=== PATIENT | female | born 1955 | race Two or more races ===

== ENCOUNTER 2020-11-19 09:31 | Emergency (ER) | payer MEDICARE, OTHER ==
[~2020-11-19] VITALS: Ht 160 cm; Wt 75.7 kg
[2020-11-19 10:00] VITALS: BP 162/88
== END 2020-11-19 12:55 | disposition home or self-care (01) ==
LOC: ER 09:31
DX: S70.361A Insect bite (nonvenomous), right thigh, initial encounter (principal); Z90.710 Acquired absence of both cervix and uterus; W57.XXXA Bitten or stung by nonvenomous insect and other nonvenomous arthropods, initial encounter; Y93.89 Activity, other specified; Y92.89 Other specified places as the place of occurrence of the external cause; Y99.8 Other external cause status

== ENCOUNTER 2024-12-06 16:53 | Inpatient (IN) | payer OTHER ==
[~2024-12-06] VITALS: Ht 160 cm; Wt 71.9 kg
[2024-12-06] MEDS: SODIUM CHLORIDE 0.9% 1,000 ML IV ONE (17:27)
[2024-12-06] MEDS: ONDANSETRON HCL 4 MG/2 ML VIAL IV ONE (17:27)
[2024-12-06] MEDS: PANTOPRAZOLE 40 MG/10 ML VIAL INJ IV ONE (17:27)
[2024-12-06] MEDS: MORPHINE SULFATE 4 MG/ML SYR/VIAL IV ONE (17:28)
[2024-12-06 17:30] VITALS: PULSE 93; RESP 18; O2SAT 98
[2024-12-06 17:48] LABS: Basophils # (auto) 0 10 ^3/uL (0-0.2); Basophils % (auto) 0.5 % (0.0-2.0); Eosinophils # (auto) 0 10 ^3/uL (0-0.8); Eosinophils % (auto) 0.5 % (0.0-7.0); Hematocrit 44.2 % (36.0-46.0); Hemoglobin 15.1 g/dL (12.2-16.2); Lymphocytes # (auto) 2.1 10 ^3/uL (0.4-5.4); Lymphocytes % (auto) 22.6 % (10.0-50.0); Mean Corpuscular Hemoglobin 30.7 pg (28.0-32.0); Mean Corpuscular Hgb Conc. 34.1 g/dL (32.0-36.0); Mean Corpuscular Volume 89.9 fL (80.0-100.0); Monocytes # (auto) 0.6 10 ^3/uL (0-1.3); Monocytes % (auto) 6.4 % (0.0-12.0); Neutrophils # (auto) 6.4 10 ^3/uL (1.6-8.6); Nucleated Red Blood Cells % 0.1 %; Platelet Count (auto) 303 10^3/uL (140-450); Red Blood Cells 4.92 10^6/uL (4.0-5.20); Red Cell Distribution Width 13.6 % (11.8-14.3); White Blood Cell 9.1 10^3/uL (4.4-10.8)
[2024-12-06 18:03] LABS: INR 0.97 (0.9-1.15); Partial Thromboplastin Time 27.3 SEC (24.5-34.5); Prothrombin Time 10.3 sec (9.3-11.8)
[2024-12-06 18:05] LABS: Alanine Aminotransferase 23 U/L (7-40); Albumin 4.7 g/dL (3.2-4.8); Alkaline Phosphatase 170 U/L (46-116); Anion Gap 10 (5-15); Aspartate Aminotransferase 28 U/L (13-40); BUN/Creatinine Ratio 20.9 (10.0-20.0); Bilirubin, Total 1.4 mg/dL (0.2-1.0); Blood Urea Nitrogen 18 mg/dL (9-23); Calcium 10.5 mg/dL (8.7-10.4); Carbon Dioxide 25 mmol/L (20-31); Chloride 109 mmol/L (98-107); Glucose 96 mg/dL (74-106); Potassium 3.8 mmol/L (3.5-5.1); Sodium 144 mmol/L (136-145); Total Protein 7.4 g/dL (5.7-8.2)
--- NOTE | 2024-12-06 18:33 | DVH ---
EXAM: CT Abdomen and Pelvis Without Intravenous Contrast CLINICAL INDICATION: abd pain n/v/d rectal bleed h/o ulcerative colitis TECHNIQUE: Axial computed tomography images of the abdomen and pelvis without intravenous contrast. This CT exam was performed using one or more of the following dose reduction techniques: automated exposure control, adjustment of the mA and/or kV according to patient size, and/or use of iterative r econstruction technique. CONTRAST: RADIATION DOSE: CTDIvol = 11.31 mGy, DLP = 592.65 mGy-cm COMPARISON: None FINDINGS: LUNG BASES: Unremarkable. No mass. No consolidation. ABDOMEN: LIVER: Unremarkable. GALLBLADDER AND BILE DUCTS: Unremarkable. No calcified stones. No ductal dilation. PANCREAS: Unremarkable. No ductal dilation. SPLEEN: Unremarkable. No splenomegaly. ADRENALS: Unremarkable. No mass. KIDNEYS AND URETERS: Bilateral simple renal cysts, largest measuring up to 3.2 cm. No obstructing stones. STOMACH AND BOWEL: Fecal retention in the colon consistent with constipation. Colonic diverticulos is without acute diverticulitis. No obstruction. PELVIS: APPENDIX: No findings to suggest acute appendicitis. BLADDER: Unremarkable. No stones. REPRODUCTIVE: Unremarkable as visualized. ABDOMEN and PELVIS: INTRAPERITONEAL SPACE: Unremarkable. No free air. No significant fluid collection. BONES/JOINTS: Severe endplate degenerative changes and disc disease of L4-5. No acute fracture. N o dislocation. SOFT TISSUES: Unremarkable. VASCULATURE: Unremarkable. No abdominal aortic aneurysm. LYMPH NODES: Unremarkable. No enlarged lymph nodes. OTHER FINDINGS: . . . IMPRESSION: 1. Fecal retention in the colon consistent with constipation. 2. Severe endplate degenerative changes and disc disease of L4-5. 3. Colonic diverticulosis without acute diverticulitis. 4. Bilateral simple renal cysts, largest measuring up to 3.2 cm.
--- NOTE | 2024-12-06 19:32 | ED.PDOC ---
GI ASSESSMENT HPI Comments 69 y.o female with PMHx of ulcerative colitis and HTN, presents to the ED for a chief complaint of rectal bleeding associated with nausea and vomiting that started last night. Patient reports bleeding progressively worsened with the presence of blood clots and moderate to heavy dark red blood. Patient reports similar issue in 2019 when she was diagnosed with ulcerative colitis due to overuse of NSAIDS but since has not followed up with a director of outside sales. Patient denies any fever, chills, dysuria. Chief Complaint: GI Bleed Time Seen by MD: 19:17 Primary Care Provider: Valeria FAITH Reviewed Notes: Nurses Notes, Medications, Allergies Allergies: Coded Allergies: NO KNOWN ALLERGIES (Unverified , 11/19/20) Information Source: Patient Mode of Arrival: Ambulatory Timing: Hours Duration: Since onset Quality: Sharp Vomitus: Hard Stool: Loose Severity: Moderate Recent: None Recent Hx of: None Pain Location: Suprapubic Modifying Factors: Nothing Associated sign and symptoms: Nausea, Vomiting, Diarrhea, Abdominal Pain Past Medical History PAST MEDICAL HISTORY: High Lipids, HTN Past Medical History (Other): Ulcerative colitis Surgical History: Hysterectomy LAVATORY ATTENDANT History: No Pertinent LAVATORY ATTENDANT History Family History Family History: Reviewed,noncontributory to illness Social History Smoker: Non-Smoker Alcohol: Denies ETOH Use Drugs: Marijuana Lives In: Home Constitutional: denies: chills, diaphoresis, fatigue, fever, malaise, sweats, weakness, others EENTM: denies: blurred vision, double vision, ear bleeding, ear discharge, ear drainage, ear pain, ear ringing, eye pain, eye redness, hearing loss, mouth pain, mouth swelling, nasal discharge, nose bleeding, nose congestion, nose pain, photophobia, tearing, throat pain, throat swelling, voice changes, others Respiratory: denies: cough, hemoptysis, orthopnea, SOB at rest, shortness of breath, SOB with excertion, stridor, wheezing, others Cardiovascular: denies: chest pain, dizzy spells, diaphoresis, Dyspnea on exertion, edema, irregular heart beat, left arm pain, lightheadedness, palpitations, PND, syncope, others Gastrointestinal: reports: abdominal pain, diarrhea, nausea, rectal bleeding, vomiting; denies: abdomen distended, blood streaked bowels, constipated, dysphagia, difficulty swallowing, hematemesis, melena, poor appetite, poor fluid intake, rectal pain, others Genitourinary: denies: abnormal vagina bleeding, burning, dyspareunia, dysuria, flank pain, frequency, hematuria, incontinence, pain, , vagina discharge, urgency, others Neurological: denies: dizziness, fainting, headache, left sided numbness, left sided weakness, numbness, paresthesia, pre-existing deficit, right sided numbness, right sided weakness, seizure, speech problems, tingling, tremors, weakness, others Musculoskeletal: denies: back pain, gout, joint pain, joint swelling, muscle pain, muscle stiffness, neck pain, others Integumetry: denies: bruises, change in color, change in hair/nails, dryness, laceration, lesions, lumps, rash, wounds, others Allergic/Immunocompromised: denies: Difficulty Healing, Frequent Infections, Hives, Itching, others Hematologic/Lymphatic: denies: anemia, blood clots, easy bleeding, easy bruising, swollen glands, others Endocrine: denies: excessive hunger, excessive sweating, excessive thirst, excessive urination, flushing, intolerance to cold, intolerance to heat, unexplained weight gain, unexplained weight loss, others Psychiatric: denies: anxiety, bipolar disorder, depression, hopeless, panic disorder, schizophrenia, sleepless, suicidal, others All Other Systems: Reviewed and Negative Physical Exam General Appearance: No Apparent Distress HEENT: Other (Pupils and face symmetric. Moist mucous membranes.) Neck: Full Range of Motion, Normal Inspection Respiratory: Lungs Clear, No Accessory Muscle Use, No Respiratory Distress, Normal Breath Sounds Cardiovascular: No Edema, No JVD, Regular Rate/Rhythm Breast Exam: Deferred Gastrointestinal: Soft, Tenderness (Generalized lower abdominal tenderness to palpation. Nontender to percussion. No rebound or guarding.) Genitalia: Deferred Pelvic: Deferred Rectal: Deferred Extremities: Normal inspection, Normal range of motion, Non-tender, No pedal edema Neurologic: Alert (Oriented x4), Normal Affect, Normal Mood, Other (Ambulatory) Cerebellar Function: NOT DONE Reflexes: NOT DONE Skin: Dry, Normal Color, Warm Lymphatic: NOT DONE Was a procedure done? Was a procedure done?: No GI differential Dx Differential Diagnosis: Diverticular disease, Gastritis/PUD, Gastroenteritis, GI hemorrhage, Inflammatory BD, Ischemic Bowel, UTI, Dehydration, Electrolyte Imbalance, Food Poisoning, Bacterial, Viral, Hypovolemia, Anemia, Esophageal Varicies, Stress Ulcer Other Differential Diagnosis Colitis, among others X-Ray, Labs, Meds, VS Vital Signs Date Time Temp Pulse Resp B/P (MAP) Pulse Ox O2 Delivery O2 Flow Rate FiO2 12/06/24 18:00 93 18 146/99 12/06/24 17:30 93 18 98 Room Air* 0 21 12/06/24 17:28 93 18 146/99 12/06/24 17:22 98.1 93 18 146/99 (115) 96 98.1 12/06/24 17:02 98.1 95 16 143/104 (117) 96 98.1 Lab Test 12/06/24 18:17 12/06/24 17:35 Range/Units Troponin I High Sensitivity 6 7 </=34 ng/L White Blood Count 9.1 4.4-10.8 10^3/uL Red Blood Count 4.92 4.0-5.20 10^6/uL Hemoglobin 15.1 12.2-16.2 g/dL Hematocrit 44.2 36.0-46.0 % Mean Corpuscular Volume 89.9 80.0-100.0 fL Mean Corpuscular Hemoglobin 30.7 28.0-32.0 pg Mean Corpuscular Hemoglobin Concent 34.1 32.0-36.0 g/dL Red Cell Distribution Width 13.6 11.8-14.3 % Platelet Count 303 140-450 10^3/uL Mean Platelet Volume 7.0 6.9-10.8 fL Neutrophils (%) (Auto) 70.0 37.0-80.0 % Lymphocytes (%) (Auto) 22.6 10.0-50.0 % Monocytes (%) (Auto) 6.4 0.0-12.0 % Eosinophils (%) (Auto) 0.5 0.0-7.0 % Basophils (%) (Auto) 0.5 0.0-2.0 % Neutrophils # (Auto) 6.4 1.6-8.6 10 ^3/uL Lymphocytes # (Auto) 2.1 0.4-5.4 10 ^3/uL Monocytes # (Auto) 0.6 0-1.3 10 ^3/uL Eosinophils # (Auto) 0 0-0.8 10 ^3/uL Basophils # (Auto) 0 0-0.2 10 ^3/uL Nucleated Red Blood Cells 0.1 % Prothrombin Time 10.3 9.3-11.8 sec Prothrombin Time INR 0.97 0.9-1.15 Activated Partial Thromboplast Time 27.3 24.5-34.5 SEC Sodium Level 144 136-145 mmol/L Potassium Level 3.8 3.5-5.1 mmol/L Chloride Level 109 H 98-107 mmol/L Carbon Dioxide Level 25 20-31 mmol/L Anion Gap 10 5-15 Blood Urea Nitrogen 18 9-23 mg/dL Creatinine 0.86 0.550-1.02 mg/dL Glomerular Filtration Rate Calc 73 >90 mL/min BUN/Creatinine Ratio 20.9 H 10.0-20.0 Serum Glucose 96 74-106 mg/dL Lactic Acid Level 1.3 0.4-2.0 mmol/L Calcium Level 10.5 H 8.7-10.4 mg/dL Total Bilirubin 1.4 H 0.2-1.0 mg/dL Aspartate Amino Transferase (AST) 28 13-40 U/L Alanine Aminotransferase (ALT) 23 7-40 U/L Alkaline Phosphatase 170 H 46-116 U/L Total Protein 7.4 5.7-8.2 g/dL Albumin 4.7 3.2-4.8 g/dL Current Medications Medications (Trade) Dose Ordered Sig/Fuentes Route Start Time Stop Time Status Last Admin Sodium Chloride 1,000 ml @ 1,000 mls/hr Q1H ONCE IV 12/06/24 17:15 12/06/24 18:14 DC 12/06/24 17:27 Morphine Sulfate 4 mg ONCE ONCE IV 12/06/24 17:15 12/06/24 17:16 DC 12/06/24 17:28 Ondansetron HCl (Zofran) 4 mg ONCE ONCE IV 12/06/24 17:15 12/06/24 17:16 DC 12/06/24 17:27 Pantoprazole Sodium (Protonix) 40 mg ONCE ONCE IV 12/06/24 17:15 12/06/24 17:16 DC 12/06/24 17:27 PROCEDURE(s): ABPL - CT AB PEL WO CON-NO ORAL OR IV REASON: abd pain n/v/d rectal bleed h/o ulcerative colitis ORDER NUMBER(s): [id number], ACCESSION NUMBER(s): [id number] EXAM: CT Abdomen and Pelvis Without Intravenous Contrast CLINICAL INDICATION: abd pain n/v/d rectal bleed h/o ulcerative colitis TECHNIQUE: Axial computed tomography images of the abdomen and pelvis without intravenous contrast. This CT exam was performed using one or more of the following dose reduction techniques: automated exposure control, adjustment of the mA and/or kV according to patient size, and/or use of iterative reconstruction technique. CONTRAST: RADIATION DOSE: CTDIvol = 11.31 mGy, DLP = 592.65 mGy-cm COMPARISON: None FINDINGS: LUNG BASES: Unremarkable. No mass. No consolidation. ABDOMEN: LIVER: Unremarkable. GALLBLADDER AND BILE DUCTS: Unremarkable. No calcified stones. No ductal dilation. PANCREAS: Unremarkable. No ductal dilation. SPLEEN: Unremarkable. No splenomegaly. ADRENALS: Unremarkable. No mass. KIDNEYS AND URETERS: Bilateral simple renal cysts, largest measuring up to 3.2 cm. No obstructing stones. STOMACH AND BOWEL: Fecal retention in the colon consistent with constipation. Colonic diverticulosis without acute diverticulitis. No obstruction. PELVIS: APPENDIX: No findings to suggest acute appendicitis. BLADDER: Unremarkable. No stones. REPRODUCTIVE: Unremarkable as visualized. ABDOMEN and PELVIS: INTRAPERITONEAL SPACE: Unremarkable. No free air. No significant fluid collection. BONES/JOINTS: Severe endplate degenerative changes and disc disease of L4-5. No acute fracture. No dislocation. SOFT TISSUES: Unremarkable. VASCULATURE: Unremarkable. No abdominal aortic aneurysm. LYMPH NODES: Unremarkable. No enlarged lymph nodes. OTHER FINDINGS: . . . IMPRESSION: 1. Fecal retention in the colon consistent with constipation. 2. Severe endplate degenerative changes and disc disease of L4-5. 3. Colonic diverticulosis without acute diverticulitis. 4. Bilateral simple renal cysts, largest measuring up to 3.2 cm. X-Ray, Labs, Meds, VS Comment 69-year-old female with a history of hypertension, dyslipidemia and ulcerative colitis presenting complaining of abdominal pain and lower GI bleeding Vitals remarkable for BP 143/104 Exam remarkable for generalized lower abdominal tenderness to palpation Rhythm strip independently interpreted by me: Sinus rhythm, rate 95, no ectopy. CT abdomen and pelvis IMPRESSION: 1. Fecal retention in the colon consistent with constipation. 2. Severe endplate degenerative changes and disc disease of L4-5. 3. Colonic diverticulosis without acute diverticulitis. 4. Bilateral simple renal cysts, largest measuring up to 3.2 cm. CBC, CMP and coag panel unremarkable Patient treated with the following in the ED: L 0.9 normal saline IV bolus, morphine 4 mg IV, Zofran 4 mg IV, Protonix 40 mg IV On re-evaluation, patient states pain has improved. Vitals were stable. Plan is to admit the patient for GI evaluation. Time of 1ST Reevaluation: 19:27 Reevaluation 1ST: Unchanged Patient Education/Counseling: Diagnosis, Treatment, Prognosis Family Education/Counseling: No Family Present Sepsis Sepsis Reasesment Focused Exam Orders: Laboratory Tests 12/06/24 17:35: Lactic Acid Level 1.3 Departure 1 Departure Time of Disposition: 21:00 Impression: Primary Impression: GI bleeding Qualified Codes: K92.2 - Gastrointestinal hemorrhage, unspecified Disposition: ADMITTED INPATIENT Admit to: Med Surg Condition: Guarded Critical Care Note Critical Care Time?: No Stability Stability form required: No I personally scribed for DWAYNE RIOS MD ([email or web address]) on 12/06/24 at 19:32. Electronically submitted by Alejandrina Brink ([facility]). DWAYNE RIOS MD Dec 06, 2024 19:32
[2024-12-07] VITALS (10 sets, daily range): BP systolic 125–177; BP diastolic 68–91; PULSE 62–75; RESP 16–18; TEMP 97.9–98.7; O2SAT 96–98
--- NOTE | 2024-12-07 00:29 | DVHHP2 ---
History of Present Illness Reason for Visit: GI bleed History of Present Illness 69-year-old female presents for evaluation of GI bleed. Patient reports a one day history of having multiple episodes of rectal bleeding. She states being diagnosed six years ago with ulcerative colitis. She reports not following up with a GI specialist since then. Past Medical History Hypertension, ulcerative colitis and dyslipidemia Past Surgical History Hysterectomy Family History Noncontributory Smoke: No ALCOHOL: none Drugs: Marijuana Review of Systems Review of Systems Review of systems are currently negative otherwise addressed in HPI. Allergies: Coded Allergies: NO KNOWN ALLERGIES (Unverified , 11/19/20) Medications Current Medications Medications Dose Ordered Sig/Fuentes Route Start Time Stop Time Status Last Admin Dose Admin Pantoprazole Sodium 40 mg DAILY IV 12/07/24 10:00 Ondansetron HCl 4 mg Q4HP PRN IV 12/06/24 20:00 Losartan Potassium 100 mg DAILY PO 12/07/24 10:00 Exam Vital Signs Vital Signs Date Time Temp Pulse Resp B/P (MAP) Pulse Ox O2 Delivery O2 Flow Rate FiO2 12/06/24 18:00 93 18 146/99 12/06/24 17:30 98 Room Air* 0 21 12/06/24 17:22 98.1 98.1 Exam Gen: 69-year-old female in no apparent distress. Skin: Warm, dry, normal color and texture, no rash. HEENT: Normocephalic atraumatic, mucous membranes moist and pink. Neck: Cervical and supraclavicular nodes normal without enlargement, trachea is midline, thyroid gland is normal without masses. Pulmonary: Clear to auscultation and percussion bilaterally. Cardiac: Regular rate and rhythm. No murmur Abdomen: Soft, nontender, nondistended, bowel sounds present all 4 quadrants, no guarding, no rigidity, no organomegaly. Extremities: No cyanosis, clubbing, no edema Neuro: Cranial nerves II through XII grossly intact, normal affect and speech, no focal motor deficits. Labs/Xrays ORDERING PHYSICIAN: DWAYNE RIOS MD PROCEDURE(s): ABPL - CT AB PEL WO CON-NO ORAL OR IV REASON: abd pain n/v/d rectal bleed h/o ulcerative colitis ORDER NUMBER(s): [id number], ACCESSION NUMBER(s): [id number] EXAM: CT Abdomen and Pelvis Without Intravenous Contrast CLINICAL INDICATION: abd pain n/v/d rectal bleed h/o ulcerative colitis TECHNIQUE: Axial computed tomography images of the abdomen and pelvis without intravenous contrast. This CT exam was performed using one or more of the following dose reduction techniques: automated exposure control, adjustment of the mA and/or kV according to patient size, and/or use of iterative reconstruction technique. CONTRAST: RADIATION DOSE: CTDIvol = 11.31 mGy, DLP = 592.65 mGy-cm COMPARISON: None FINDINGS: LUNG BASES: Unremarkable. No mass. No consolidation. ABDOMEN: LIVER: Unremarkable. GALLBLADDER AND BILE DUCTS: Unremarkable. No calcified stones. No ductal dilation. PANCREAS: Unremarkable. No ductal dilation. SPLEEN: Unremarkable. No splenomegaly. ADRENALS: Unremarkable. No mass. KIDNEYS AND URETERS: Bilateral simple renal cysts, largest measuring up to 3.2 cm. No obstructing stones. STOMACH AND BOWEL: Fecal retention in the colon consistent with constipation. Colonic diverticulosis without acute diverticulitis. No obstruction. PELVIS: APPENDIX: No findings to suggest acute appendicitis. BLADDER: Unremarkable. No stones. REPRODUCTIVE: Unremarkable as visualized. ABDOMEN and PELVIS: INTRAPERITONEAL SPACE: Unremarkable. No free air. No significant fluid collection. BONES/JOINTS: Severe endplate degenerative changes and disc disease of L4-5. No acute fracture. No dislocation. SOFT TISSUES: Unremarkable. VASCULATURE: Unremarkable. No abdominal aortic aneurysm. LYMPH NODES: Unremarkable. No enlarged lymph nodes. OTHER FINDINGS: . . . IMPRESSION: 1. Fecal retention in the colon consistent with constipation. 2. Severe endplate degenerative changes and disc disease of L4-5. 3. Colonic diverticulosis without acute diverticulitis. 4. Bilateral simple renal cysts, largest measuring up to 3.2 cm. Labs Test 12/07/24 00:15 12/06/24 17:35 Range/Units White Blood Count 9.1 4.4-10.8 10^3/uL Red Blood Count 4.92 4.0-5.20 10^6/uL Hemoglobin 15.1 12.2-16.2 g/dL Hematocrit 44.2 36.0-46.0 % Mean Corpuscular Volume 89.9 80.0-100.0 fL Mean Corpuscular Hemoglobin 30.7 28.0-32.0 pg Mean Corpuscular Hemoglobin Concent 34.1 32.0-36.0 g/dL Red Cell Distribution Width 13.6 11.8-14.3 % Platelet Count 303 140-450 10^3/uL Mean Platelet Volume 7.0 6.9-10.8 fL Neutrophils (%) (Auto) 70.0 37.0-80.0 % Lymphocytes (%) (Auto) 22.6 10.0-50.0 % Monocytes (%) (Auto) 6.4 0.0-12.0 % Eosinophils (%) (Auto) 0.5 0.0-7.0 % Basophils (%) (Auto) 0.5 0.0-2.0 % Neutrophils # (Auto) 6.4 1.6-8.6 10 ^3/uL Lymphocytes # (Auto) 2.1 0.4-5.4 10 ^3/uL Monocytes # (Auto) 0.6 0-1.3 10 ^3/uL Eosinophils # (Auto) 0 0-0.8 10 ^3/uL Basophils # (Auto) 0 0-0.2 10 ^3/uL Nucleated Red Blood Cells 0.1 % Prothrombin Time 10.3 9.3-11.8 sec Prothrombin Time INR 0.97 0.9-1.15 Activated Partial Thromboplast Time 27.3 24.5-34.5 SEC Sodium Level 144 136-145 mmol/L Potassium Level 3.8 3.5-5.1 mmol/L Chloride Level 109 H 98-107 mmol/L Carbon Dioxide Level 25 20-31 mmol/L Anion Gap 10 5-15 Blood Urea Nitrogen 18 9-23 mg/dL Creatinine 0.86 0.550-1.02 mg/dL Glomerular Filtration Rate Calc 73 >90 mL/min BUN/Creatinine Ratio 20.9 H 10.0-20.0 Serum Glucose 96 74-106 mg/dL Lactic Acid Level 1.3 0.4-2.0 mmol/L Calcium Level 10.5 H 8.7-10.4 mg/dL Total Bilirubin 1.4 H 0.2-1.0 mg/dL Aspartate Amino Transferase (AST) 28 13-40 U/L Alanine Aminotransferase (ALT) 23 7-40 U/L Alkaline Phosphatase 170 H 46-116 U/L Total Protein 7.4 5.7-8.2 g/dL Albumin 4.7 3.2-4.8 g/dL Assessment/Plan Assessment/Plan Assessment GI bleed Hypertension Plan Admit the patient to [facility] to the hospitalist GI consult Clear liquid diet Resume home medications Continue treatment per orders Plan discussed with: Patient My Orders Orders - RALF GOTTI Procedure Category Date Status Time Admit ADMIT 12/06/24 Transmitted 19:34 * [facility] Facilities Manager CONS 12/06/24 Transmitted 19:56 Pantoprazole PHA 12/07/24 In Process (Protonix) 10:00 Basic Metabolic Panel LAB 12/07/24 Logged 04:00 Ondansetron Hcl PHA 12/06/24 In Process (Zofran) 20:00 Complete Blood Count LAB 12/07/24 Logged 04:00 Condition: Stable GAETANO 12/06/24 In Process 19:56 Clear Liq Diet DIET 12/07/24 Transmitted Breakfast Bedrest With Bathroom GAETANO 12/06/24 In Process Privileg 19:56 Losartan Tablet PHA 12/07/24 In Process (Cozaar Tablet) 10:00 Type And Screen BBK 12/07/24 Verified 00:25 Stool Occult Blood LAB 12/07/24 Verified 00:25 Date of Service: Dec 06, 2024 Billing Provider: RALF GOTTI Common Visit Codes: [id number] INP/OBS CARE (HIGH) RALF GOTTI Dec 07, 2024 00:29
[2024-12-07] MEDS ORDERED: LOSA-534 PO (04:35)
[2024-12-07] MEDS ORDERED: CHOL1TAB22 PO (04:38)
[2024-12-07] MEDS ORDERED: OMEG-28 PO (04:38)
[2024-12-07] MEDS ORDERED: MULT1TAB28 PO (04:38)
[2024-12-07] MEDS ORDERED: ASCO500T11 PO (04:38)
[2024-12-07 05:36] LABS: Basophils # (auto) 0 10 ^3/uL (0-0.2); Basophils % (auto) 0.5 % (0.0-2.0); Eosinophils # (auto) 0.1 10 ^3/uL (0-0.8); Eosinophils % (auto) 1.5 % (0.0-7.0); Hematocrit 37.1 % (36.0-46.0); Hemoglobin 12.8 g/dL (12.2-16.2); Lymphocytes # (auto) 2.2 10 ^3/uL (0.4-5.4); Lymphocytes % (auto) 27.9 % (10.0-50.0); Mean Corpuscular Hgb Conc. 34.4 g/dL (32.0-36.0); Mean Corpuscular Volume 90.1 fL (80.0-100.0); Monocytes # (auto) 0.7 10 ^3/uL (0-1.3); Monocytes % (auto) 8.6 % (0.0-12.0); Neutrophils # (auto) 4.8 10 ^3/uL (1.6-8.6); Neutrophils % (auto) 61.5 % (37.0-80.0); Nucleated Red Blood Cells % 0.1 %; Platelet Count (auto) 271 10^3/uL (140-450); Red Blood Cells 4.12 10^6/uL (4.0-5.20); Red Cell Distribution Width 13.4 % (11.8-14.3); White Blood Cell 7.8 10^3/uL (4.4-10.8)
[2024-12-07 05:46] LABS: Potassium 3.9 mmol/L (3.5-5.1); Sodium 144 mmol/L (136-145)
[2024-12-07 05:47] LABS: Anion Gap 7 (5-15); Carbon Dioxide 26 mmol/L (20-31)
[2024-12-07 05:48] LABS: Calcium 9.1 mg/dL (8.7-10.4)
[2024-12-07 05:52] LABS: BUN/Creatinine Ratio 23.7 (10.0-20.0); Blood Urea Nitrogen 18 mg/dL (9-23); Glucose 88 mg/dL (74-106)
[2024-12-07 06:06] LABS: Chloride 111 mmol/L (98-107)
[2024-12-07 06:14] LABS: Urine Bacteria None Seen /hpf (None Seen)
[2024-12-07 06:42] LABS: Urine Blood Negative /uL (Negative); Urine Clarity Clear (Clear); Urine Color Yellow (Yellow); Urine Hyaline Cast FEW /lpf (0 - 2); Urine Mucus FEW (None Seen); Urine Protein, UAD TRACE (Negative); Urine Specific Gravity 1.029 (1.001-1.035); Urine Squamous Epithelial Cell FEW /hpf (<5); Urine Urobilinogen Normal (Negative); Urine WBC 3 /HPF (0-5)
[2024-12-07] MEDS: PANTOPRAZOLE 40 MG/10 ML VIAL INJ IV SCH (09:11)
[2024-12-07] MEDS: LOSARTAN POTASSIUM 50 MG TAB PO SCH (09:11)
--- NOTE | 2024-12-07 12:51 | DVHINCON2 ---
GI Consult Consult Note GI consult note Date of Consultation: 12/07/2024 Chief Complaint: GI bleed Referring Physician: Leon SCOTT H&P: 69-year-old female presented to ER for evaluation of GI bleed. Patient complains of multiple episodes of red blood rectally on Friday, along with nausea and vomiting. Denies hematemesis. Last BM yesterday at 3:00 p.m.. Denies abdominal. Last colonoscopy 2018, in [place], diagnosed with ulcerative colitis. Patient does not take any medications for this. Patient gives history of regular bowel movements denies history of constipation. No blood thinners. Mother diagnosed with colon cancer when she was 92 years old Past Medical History: Hypertension, ulcerative colitis and dyslipidemia Past Surgical History: Hysterectomy Social History: Smoke: No ALCOHOL: none Drugs: Marijuana Family History: Noncontributory Review of Systems: Constitutional: no fever, chill, weight loss HEENT: no eye pain, no hearing loss, no oral lesion, no scleral icterus Heart: no chest pain, no chest pressure Lung: no cough, no dyspnea with exertion Abdomen: see HPI Physical exam: General: NAD, AAOX3 Chest: lung canales clear to auscultation Heart: RRR, no murmur Abdomen: non-distended, no tenderness to palpation, +BS Labs: Labs Test 12/07/24 06:06 12/07/24 05:03 12/06/24 17:35 Range/Units Urine Color Yellow Yellow Urine Clarity Clear Clear Urine pH 5.0 5.0-9.0 Urine Specific [place] 1.029 1.001-1.035 Urine Protein Trace H Negative Urine Ketones 1+ H Negative Urine Blood Negative Negative /uL Urine Nitrite Negative Negative Urine Bilirubin Negative Negative Urine Urobilinogen Normal Negative mg/dL Urine Leukocyte Esterase Trace Negative /uL Urine RBC 1 0 - 4 /hpf Urine Microscopic WBC 3 0-5 /HPF Urine Squamous Epithelial Cells Few <5 /hpf Urine Bacteria None seen None Seen /hpf Urine Hyaline Casts Few 0 - 2 /lpf Urine Mucus Few None Seen Urine Glucose Normal Normal mg/dL White Blood Count 7.8 4.4-10.8 10^3/uL Red Blood Count 4.12 4.0-5.20 10^6/uL Hemoglobin 12.8 # 12.2-16.2 g/dL Hematocrit 37.1 # 36.0-46.0 % Mean Corpuscular Volume 90.1 80.0-100.0 fL Mean Corpuscular Hemoglobin 31.0 28.0-32.0 pg Mean Corpuscular Hemoglobin Concent 34.4 32.0-36.0 g/dL Red Cell Distribution Width 13.4 11.8-14.3 % Platelet Count 271 140-450 10^3/uL Mean Platelet Volume 7.1 6.9-10.8 fL Neutrophils (%) (Auto) 61.5 37.0-80.0 % Lymphocytes (%) (Auto) 27.9 10.0-50.0 % Monocytes (%) (Auto) 8.6 0.0-12.0 % Eosinophils (%) (Auto) 1.5 0.0-7.0 % Basophils (%) (Auto) 0.5 0.0-2.0 % Neutrophils # (Auto) 4.8 1.6-8.6 10 ^3/uL Lymphocytes # (Auto) 2.2 0.4-5.4 10 ^3/uL Monocytes # (Auto) 0.7 0-1.3 10 ^3/uL Eosinophils # (Auto) 0.1 0-0.8 10 ^3/uL Basophils # (Auto) 0 0-0.2 10 ^3/uL Nucleated Red Blood Cells 0.1 % Sodium Level 144 136-145 mmol/L Potassium Level 3.9 3.5-5.1 mmol/L Chloride Level 111 H 98-107 mmol/L Carbon Dioxide Level 26 20-31 mmol/L Anion Gap 7 5-15 Blood Urea Nitrogen 18 9-23 mg/dL Creatinine 0.76 0.550-1.02 mg/dL Glomerular Filtration Rate Calc 85 >90 mL/min BUN/Creatinine Ratio 23.7 H 10.0-20.0 Serum Glucose 88 74-106 mg/dL Calcium Level 9.1 8.7-10.4 mg/dL Troponin I High Sensitivity 10 </=34 ng/L Prothrombin Time 10.3 9.3-11.8 sec Prothrombin Time INR 0.97 0.9-1.15 Activated Partial Thromboplast Time 27.3 24.5-34.5 SEC Lactic Acid Level 1.3 0.4-2.0 mmol/L Total Bilirubin 1.4 H 0.2-1.0 mg/dL Aspartate Amino Transferase (AST) 28 13-40 U/L Alanine Aminotransferase (ALT) 23 7-40 U/L Alkaline Phosphatase 170 H 46-116 U/L Total Protein 7.4 5.7-8.2 g/dL Albumin 4.7 3.2-4.8 g/dL Imaging: CT abdomen pelvis IMPRESSION: 1. Fecal retention in the colon consistent with constipation. 2. Severe endplate degenerative changes and disc disease of L4-5. 3. Colonic diverticulosis without acute diverticulitis. 4. Bilateral simple renal cysts, largest measuring up to 3.2 cm. Assessment: GI bleed History ulcerative colitis Constipation Plan: Discussed with Dr. Owusu - Pt will be scheduled for colonoscopy tomorrow 12/08/2024. Pt was informed of the risks (bleeding, infection, perforation, reaction to sedation medications and cardiopulmonary arrest) and benefit and is agreeable to undergo the procedures. Discussed plan with patient, sister at bedside and RN Thank you for this consult Date of Service: Dec 07, 2024 Billing Provider: WILD DANIEL Common Visit Codes: CONSULT ONLY Consultation Codes: [id number] CONSULT <60MIN WILD DANIEL Dec 07, 2024 12:51
[2024-12-07] MEDS: GOLYTELY 4L KIT PO ONE (16:05)
[2024-12-07] MEDS: hydrALAZINE HCL 20 MG/ML VL IV PRN (16:53)
[2024-12-08] VITALS (8 sets, daily range): BP systolic 133–159; BP diastolic 72–87; PULSE 25–78; RESP 17–25; TEMP 97.6–98.2; O2SAT 95–98
[2024-12-08] MEDS: MAGNESIUM CITRATE SOLUTION 300 ML BTL PO ONE (05:02)
[2024-12-08] MEDS: GOLYTELY 4L KIT PO ONE (05:09)
[2024-12-08 10:05] LABS: Basophils # (auto) 0 10 ^3/uL (0-0.2); Basophils % (auto) 0.6 % (0.0-2.0); Eosinophils # (auto) 0.1 10 ^3/uL (0-0.8); Eosinophils % (auto) 0.7 % (0.0-7.0); Hemoglobin 14.9 g/dL (12.2-16.2); Lymphocytes # (auto) 1.4 10 ^3/uL (0.4-5.4); Lymphocytes % (auto) 16.9 % (10.0-50.0); Mean Corpuscular Hemoglobin 30.7 pg (28.0-32.0); Mean Corpuscular Hgb Conc. 33.9 g/dL (32.0-36.0); Mean Corpuscular Volume 90.4 fL (80.0-100.0); Monocytes # (auto) 0.6 10 ^3/uL (0-1.3); Neutrophils # (auto) 6.1 10 ^3/uL (1.6-8.6); Neutrophils % (auto) 74.8 % (37.0-80.0); Platelet Count (auto) 310 10^3/uL (140-450); Red Blood Cells 4.86 10^6/uL (4.0-5.20); Red Cell Distribution Width 13.8 % (11.8-14.3); White Blood Cell 8.1 10^3/uL (4.4-10.8)
[2024-12-08] MEDS ORDERED: LIDOCAINE 1% INJ PF 5ML AMP ONE (12:37)
[2024-12-08] MEDS ORDERED: KETAMINE 50mg/ML 1ml syringe ONE (12:37)
[2024-12-08] MEDS ORDERED: SODIUM CHLORIDE LOCK 10 ML ONE (12:37)
[2024-12-08] MEDS ORDERED: MIDAZOLAM HCL 2MG/2ML 2ml VIAL (1mg/ml) ONE (12:37)
[2024-12-08] MEDS ORDERED: PROPOFOL 10 MG/ML 20 ML IV ONE (12:37)
[2024-12-08] MEDS ORDERED: fentaNYL CITRATE 100 MCG/2 ML VL ONE (12:37)
--- NOTE | 2024-12-08 13:57 | DVHOP2 ---
Operative Report DATE OF OPERATION: 12/08/24 PROCEDURE: Colonoscopy with cold snare polypectomy and biopsy. PREOPERATIVE INDICATION: The patient is a 69 -year-old female undergoing colonoscopy for rectal bleeding nausea vomiting abdominal pain POSTOPERATIVE DIAGNOSES: 1. Patient has a focal area of ischemic colitis extending from about 25-40 cm above the anal verge with area of ulceration hyperemia erythema and mucosal edema and biopsies were obtained 2. There was a 3-4 mm benign-appearing proximal transverse colon polyp that was seen and removed via cold snare polypectomy and the specimens were retrieved 3. Moderate scattered diverticular disease 4. Trace internal hemorrhoids otherwise normal examination up to the cecum and terminal ileum with no active bleeding no fresh or old blood in the colon PROCEDURE PERFORMED BY: Dennis Owusu M.D. SCOPE: Olympus videocolonoscope. ASA CLASS: 2. PREOPERATIVE MEDICATIONS: Dr. Vaughn Patel PROCEDURE IN DETAIL: After obtaining an informed consent, the patient was placed on left lateral decubitus position. She was then sedated with the above medications. A rectal examination was performed that was normal. The colonoscope was then passed through the anus into the rectosigmoid and through the descending, transverse, and ascending colon up to the cecum with visualization of the appendiceal orifice, base of the cecum and the ileocecal valve. The colonoscope was then withdrawn. The distal 5 cm of the terminal ileum were normal. There was no fresh or old blood in the colon In the proximal transverse colon there was a 3-4 mm benign-appearing polyp that was seen and removed by cold snare polypectomy and the specimen was retrieved No other polyps or masses were seen. Patient had moderate scattered diverticular disease both in the sigmoid and also in the right colon Patient had an segmental area of ischemic colitis extending from about 25-40 cm of the anal verge with hyperemia erythema mucosal edema and superficial ulceration from which biopsies were obtained On retroflexion and straight on view the patient had trace internal hemorrhoids The patient tolerated the procedure well without difficulty. WITHDRAWAL TIME: 9 minutes QUALITY OF THE PREP: [place] Bowel Prep score: 9. COMPLICATIONS : None SPECIMENS: Transverse colon polyp Descending colon biopsies DISPOSITION: Transfer back to the floor Stable PLAN: 1. Repeat colonoscopy based on biopsy result likely in 3-5 years 2. Resume full liquid diet advance to soft mechanical 3. Increase fluid and fiber intake and avoid dehydration and constipation 4. Outpatient follow up with me in 4-6 weeks to review results discuss further management DENNIS OWUSU MD Dec 08, 2024 13:57
[2024-12-08] MEDS: ONDANSETRON HCL 4 MG/2 ML VIAL IV PRN (13:58)
[2024-12-09 01:00] VITALS: BP 117/65; PULSE 64; RESP 16; TEMP 98.3; O2SAT 96
[2024-12-09 05:00] VITALS: BP 119/71; PULSE 62; RESP 16; TEMP 98.2; O2SAT 94
[2024-12-09 08:00] VITALS: RESP 18
[2024-12-09 08:48] VITALS: BP 150/82; PULSE 57; RESP 19; TEMP 98.2; O2SAT 97
[2024-12-09 13:00] VITALS: BP 144/102; PULSE 95; RESP 19; TEMP 98.1; O2SAT 97
--- NOTE | 2024-12-09 22:03 | DVHPN2 ---
Progress Note - Dictate Date Seen: Dec 09, 2024 (Late entry Time of visit 1:00 p.m.) Medical Necessity Reason Pt with a Central, PICC or Fol: No Subjective No new complaints, patient resting comfortably There was no further episodes of bleeding or diarrhea Patient is tolerating diet vital signs Vital Sign Date Time Temp Pulse Resp B/P (MAP) Pulse Ox O2 Delivery O2 Flow Rate FiO2 12/09/24 13:00 98.1 95 19 144/102 (116) 97 98.1 12/09/24 08:00 Room Air* 0 21 Total Intake and Output 12/08/24 12/08/24 12/09/24 15:00 23:00 07:00 Intake Total 100 ml 0 ml 800 ml Balance 100 ml 0 ml 800 ml objective General: NAD, AAOX3 Chest: lung canales clear to auscultation Heart: RRR, no murmur Abdomen: non-distended, no tenderness to palpation, +BS laboratory and microbiology Laboratory Tests 12/08/24 09:23 12/07/24 05:03 Test 12/07/24 05:03 Range/Units Serum Glucose 88 74-106 mg/dL Problems(with codes): (1) Ischemic colitis (2) GI bleeding (3) Polyp of transverse colon Prognosis Plan Advance diet as tolerated Discharge planning is in progress Increase fluid and fiber intake Outpatient follow up with me in 4-6 weeks to review results and discuss further management Plan discussed with: Patient DENNIS ALCALA MD Dec 09, 2024 22:03
== END 2024-12-09 15:10 | disposition home or self-care (01) | DRG 393 ==
LOC: ER 16:53 → OVERFLOW 19:34 → EAST 12-07 01:48
PROVIDERS: ADMIT Hospitalist; ATTEND Hospitalist
PROC: 0DBL8ZX Excision of Transverse Colon, Via Natural or Artificial Opening Endoscopic, Diagnostic (ICD-10-PCS; 2024-12-08)
PROC: 0DBM8ZZ Excision of Descending Colon, Via Natural or Artificial Opening Endoscopic (ICD-10-PCS; principal; 2024-12-08 13:20)
DX: K63.5 Polyp of colon (principal); K57.31 Diverticulosis of large intestine without perforation or abscess with bleeding; K55.9 Vascular disorder of intestine, unspecified; I10 Essential (primary) hypertension; K59.00 Constipation, unspecified; N28.1 Cyst of kidney, acquired; E78.5 Hyperlipidemia, unspecified; Z90.710 Acquired absence of both cervix and uterus
CPT/HCPCS: 36415; 45380; 74176; 80048; 80053; 81001; 83605; 84484; 85025; 85610; 85730; 86850; 86900; 86901; 87040; 96361; 96374; G0378; J2250; J2405; J2470; J2704